=== PATIENT | male | born 1990 | race Caucasian/White ===

== ENCOUNTER 2017-11-19 13:42 | Emergency (ER) | payer BC, OTHER ==
[2017-11-19 13:57] VITALS: BP 119/82
--- NOTE | 2017-11-19 14:43 | UC ---
Abdominal Pain Male HPI - HPI Summary HPI Summary: c/o vomiting his lunch yesterday. Ever since has been sipping water for fear of vomiting again. Denies another episode of vomiting since yesterday afternoon but keeps on having watery BMs, sheth in color, with scant mucus. He states there was scant amount of blood as he wiped but not otherwise. Denies symptoms in household members, denies eating anything out of the ordinary. - History of Current Complaint Chief Complaint: UCGeneralIllness Stated Complaint: STOMACH PAIN,DIARRHEA Time Seen by Provider: 11/19/17 14:31 Hx Obtained From: Patient Onset/Duration: Sudden Onset Timing: Intermittent Episodes Lasting: - until BM Severity Initially: Mild Severity Currently: Moderate Pain Intensity: 4 Location: Diffuse Radiates: No Character: Colicy Alleviating Factor(s): Other - bm Associated Signs And Symptoms: Positive: Negative, Nausea, Diarrhea - Allergies/Home Medications Allergies/Adverse Reactions: Allergies Allergy/AdvReac Type Severity Reaction Status Date / Time No Known Allergies Allergy Verified 11/19/17 13:50 Home Medications: Home Medications NK [No Home Medications Reported] 11/19/17 [History Confirmed 11/19/17] PMH/Surg Hx/FS Hx/Imm Hx Previously Healthy: Yes - Surgical History Surgical History: None - Social History Alcohol Use: None Substance Use Type: None Smoking Status (MU): Never Smoked Tobacco Review of Systems Gastrointestinal: Abdominal Pain, Vomiting, Diarrhea, Nausea All Other Systems Reviewed And Are Negative: Yes Physical Exam Triage Information Reviewed: Yes Appearance: Well-Appearing, No Pain Distress, Well-Nourished Vital Signs: Initial Vital Signs Temp 98.3 F 11/19/17 13:51 Pulse 88 11/19/17 13:51 Resp 16 11/19/17 13:51 BP 119/82 11/19/17 13:51 Pulse Ox 98 11/19/17 13:51 Vital Signs Reviewed: Yes Eyes: Positive: Conjunctiva Clear ENT: Positive: Pharynx normal, Uvula midline Neck: Positive: Supple, Nontender, No Lymphadenopathy Respiratory: Positive: Chest non-tender, Lungs clear, Normal breath sounds, No respiratory distress Cardiovascular: Positive: RRR, No Murmur, Pulses Normal, Brisk Capillary Refill Abdomen Description: Positive: Nontender, No Organomegaly, Soft Bowel Sounds: Positive: Present Abd Pain Male Course/Dx - Course Course Of Treatment: Continue oral hydration, continue monitoring urine output, start food as tolerated BRAT diet, yogurt, avoid other dairy, avoid caffeine, alcohol and cigarettes, follow up with PCP and return if presence of tarry stools, blood in stool is detected. - Differential Dx/Clinical Impression Provider Diagnoses: Gastroenteritis Discharge - Sign-Out/Discharge Documenting (check all that apply): Discharge - Discharge Plan Condition: Stable Disposition: HOME Patient Education Materials: Gastroenteritis (ED) Forms: *Work Release Referrals: Casandra Trujillo MD [Primary Care Provider] - - Billing Disposition and Condition Condition: STABLE Disposition: HOME
== END 2017-11-19 14:57 | disposition home or self-care (01) ==
LOC: UCEAST 13:42
DX: K52.9 Noninfective gastroenteritis and colitis, unspecified (principal)
CPT/HCPCS: 99211; G0463

== ENCOUNTER 2019-07-22 09:18 | Emergency (ER) | payer OTHER ==
[2019-07-22 09:39] VITALS: BP 116/72
--- NOTE | 2019-07-22 10:22 | UC ---
Throat Pain/Nasal Haris HPI - HPI Summary HPI Summary: Patient is a 29-year-old male presenting with cough and sore throat 3 days. Denies ear pain and nasal congestion. Does note postnasal drip. Denies shortness breath and wheezing. He denies fever or chills. Denies nausea and vomiting. Denies decreased appetite and fluid intake. Notes history of seasonal allergies for which he takes Lexus. Denies history of asthma. States he has taken mucinex with some relief. - History of Current Complaint Chief Complaint: UCGeneralIllness Stated Complaint: COUGH Hx Obtained From: Patient Onset/Duration: Gradual Onset, Lasting Days Pain Intensity: 0 Pain Scale Used: 0-10 Numeric - Allergies/Home Medications Allergies/Adverse Reactions: Allergies Allergy/AdvReac Type Severity Reaction Status Date / Time No Known Allergies Allergy Verified 07/22/19 09:35 Home Medications: Home Medications guaiFENesin [Mucinex] 600 mg PO ONCE 07/22/19 [History Confirmed 07/22/19] PMH/Surg Hx/FS Hx/Imm Hx Previously Healthy: Yes - Surgical History Surgical History: Yes Surgery Procedure, Year, and Place: colonoscopy 2019 - Family History Known Family History: Positive: Unknown, Non-Contributory - Social History Occupation: Employed Full-time Alcohol Use: None Substance Use Type: None Smoking Status (MU): Never Smoked Tobacco Review of Systems All Other Systems Reviewed And Are Negative: Yes Constitutional: Positive: Negative. Negative: Fever, Chills ENT: Positive: Sore Throat, Nasal Discharge - PND. Negative: Ear Ache, Sinus Congestion, Sinus Pain/Tenderness Respiratory: Positive: Cough - dry. Negative: Shortness Of Breath Cardiovascular: Positive: Negative Gastrointestinal: Positive: Negative Neurological: Positive: Negative Physical Exam Triage Information Reviewed: Yes Appearance: Well-Appearing, No Pain Distress, Well-Nourished Vital Signs: Initial Vital Signs Temp 98.6 F 07/22/19 09:36 Pulse 71 07/22/19 09:36 Resp 18 07/22/19 09:36 BP 116/72 07/22/19 09:36 Pulse Ox 98 07/22/19 09:36 Vital Signs Reviewed: Yes Eyes: Positive: Conjunctiva Clear ENT: Positive: Hearing grossly normal, Pharyngeal erythema, Nasal drainage - PND , TMs normal, Uvula midline. Negative: Nasal congestion, Tonsillar swelling, Tonsillar exudate, Sinus tenderness Neck exam: Normal Neck: Positive: Supple, Nontender, No Lymphadenopathy Respiratory Exam: Normal Respiratory: Positive: Lungs clear, Normal breath sounds, No respiratory distress. Negative: Crackles, Rhonchi, Stridor, Wheezing Cardiovascular Exam: Normal Cardiovascular: Positive: RRR Neurological: Positive: Alert Psychological: Positive: Age Appropriate Behavior Skin Exam: Normal Throat Pain/Nasal Course/Dx - Course Course Of Treatment: Discussed viral illness and symptomatic treatment with patient. Instructed to follow up with PCP if symptoms persist. Patient voiced understanding and agreed with treatment plan. - Differential Dx/Diagnosis Provider Diagnosis: Pharyngitis, Post-nasal drip, Bronchitis, acute Discharge ED - Sign-Out/Discharge Documenting (check all that apply): Patient Departure All imaging exams completed and their final reports reviewed: No Studies - Discharge Plan Condition: Stable Disposition: HOME Patient Education Materials: Upper Respiratory Infection (ED), Postnasal Drip ( DC) Referrals: Casandra Trujillo MD [Primary Care Provider] - If Needed Additional Instructions: As discussed, your symptoms are most likely caused by a virus and will resolve with time. You may continue to take mucinex and your allergy mediation as directed. You may use Flonase as directed for symptomatic relief. You may take ibuprofen or tylenol as directed for pain relief. Get plenty of rest and fluids. Follow up with your primary care doctor if your symptoms worsen or do not resolve within 7 days. - Billing Disposition and Condition Condition: STABLE Disposition: Home
== END 2019-07-22 10:38 | disposition home or self-care (01) ==
LOC: UCEAST 09:18
DX: J02.9 Acute pharyngitis, unspecified (principal); J20.9 Acute bronchitis, unspecified; R09.82 Postnasal drip
CPT/HCPCS: 99211; G0463